=== PATIENT | female | born 1925 | race Caucasian/White ===

== ENCOUNTER 2016-07-20 15:58 | Inpatient (IN) | payer MEDICARE, BC ==
[2016-07-20 16:25] LABS: Hematocrit 32 % (35-47); Hemoglobin 10.4 g/dl (12.0-16.0); Mean Corpuscular HGB Conc 33 g/dl (31-36); Mean Corpuscular Hemoglobin 28 pg (27-31); Mean Corpuscular Volume 86 fL (80-97); Mean Platelet Volume 7 um3 (7.4-10.4); Red Blood Count 3.71 10^6/ul (4.0-5.4); Red Cell Distribution Width 17 % (10.5-15); White Blood Count 9.6 10^3/ul (3.5-10.8)
--- NOTE | 2016-07-20 16:27 | RAD ---
INDICATION: Neurologic code villeda COMPARISON: CT brain May 16, 2012 TECHNIQUE: Noncontrast axial source images were acquired from the skull base to the vertex. FINDINGS: Ventricles/sulci: The ventricles and cisterns are normal in size and configuration for age. Brain parenchyma: There is mild periventricular and subcortical white matter change compatible with chronic ischemia. Intracranial hemorrhage:None. Extra-axial spaces: There are no abnormal extra axial fluid collections or evidence of extra-axial mass. Calvarium: There is no calvarial fracture or other calvarial abnormality. Scalp: There is no evidence of scalp or extracalvarial soft tissue abnormality. Paranasal sinuses/mastoid: The paranasal sinuses and mastoid air cells are clear. Other: None. IMPRESSION: NO ACUTE INTRACRANIAL FINDINGS
--- NOTE | 2016-07-20 16:29 | RAD ---
INDICATION: Left-sided weakness COMPARISON: May 15, 2012 TECHNIQUE: An AP portable view obtained at 1620 hours is submitted. FINDINGS: Bones/Soft Tissues: There are no acute bony findings. Cardiomediastinal: The cardiomediastinal silhouette is normal. Lungs: There are no infiltrates. There is hyperinflation Pleura: There is mild chronic blunting at the costophrenic angles likely reflecting mild chronic pleural change in correlation with hyperinflation. Other: None IMPRESSION: NO ACTIVE DISEASE
[2016-07-20] MEDS ORDERED: Aspirin SUPP* 300 MG PR ONE (16:36)
[2016-07-20 16:41] LABS: Albumin 3.9 g/dL (3.2-5.2); BUN/Creatinine Ratio 19.2 (8-20); Calcium 9.1 mg/dL (8.6-10.3); EGFR African American 67.9 (>60); EGFR Non-African American 52.8 (>60); Globulin 2.6 g/dL (2-4); Potassium 4.3 mmol/L (3.5-5.0); Total Bilirubin 0.6 mg/dL (0.2-1.0); Total Protein 6.5 g/dL (6.4-8.9)
[2016-07-20 16:43] LABS: Troponin I 0.01 ng/mL (<0.04)
[2016-07-20] MEDS ORDERED: Iodixanol* (CONTRAST) 320 MG/ML 100 ML SDV IV ONE (17:11)
--- NOTE | 2016-07-20 17:47 | RAD ---
INDICATION: Left-sided CVA COMPARISON: CT brain July 20, 2016 TECHNIQUE: Axial source images were acquired with coronal and sagittal reconstructions. CT angiographic technique was utilized with injection of 80 mL Visipaque 320. FINDINGS: Aortic arch: There are moderate atherosclerotic calcifications of the arch. There are no significant CT angiographic adenitis of the great vessels arising from the arch other than mild intimal calcifications. Right carotid: The internal carotid artery, carotid bifurcation, extracranial portions of the internal carotid artery, carotid artery at the skull base, carotid siphon, and carotid termination appear patent. There are intimal calcifications at the level of the bifurcation and carotid siphon.. Left carotid:The internal carotid artery, carotid bifurcation, extracranial portions of the internal carotid artery, carotid artery at the skull base, carotid siphon, and carotid termination appear patent. There are intimal calcifications the level of the bifurcation and carotid siphon. Right middle and anterior cerebral arteries: There are no CT angiographic abnormalities of the middle or anterior cerebral arteries. Left middle and anterior cerebral arteries: There are no CT angiographic abnormalities of the middle or anterior cerebral arteries Right vertebral: The CT angiographic appearance of the vertebral artery is normal. Left vertebral: The CT angiographic appearance of the vertebral artery is normal. Basilar artery: The basilar artery and basilar tip appear normal. Posterior cerebral arteries: The distal distribution of the right and left posterior cerebral arteries is normal. [place]: The CT angiographic appearance of the [place] is normal. There is a variant with origin of the left posterior cerebral artery. Source images show no evidence of mass or adenopathy within the neck. There are no focal parenchymal abnormalities or abnormal areas of enhancement. IMPRESSION: NO EVIDENCE OF SIGNIFICANT STENOSIS, ANEURYSM, OR BRANCH OCCLUSION. MILD UNDERLYING INTIMAL CALCIFICATIONS COMPATIBLE WITH ATHEROSCLEROTIC CHANGE. CPT II Codes: 3100F PQRS
[2016-07-20 18:21] LABS: Urine Bacteria Absent (Absent); Urine Bilirubin Negative (Negative); Urine Glucose Negative (Negative); Urine Nitrite Positive (Negative)
[2016-07-20] MEDS ORDERED: Atorvastatin* 80 MG TAB PO ONE ×2 (18:50→21:30)
[2016-07-20] MEDS ORDERED: Ciprofloxacin 400MG IVPREMIX(* 400 MG/200 ML BAG IVPB ONE (18:52)
--- NOTE | 2016-07-20 19:45 | ED ---
Walter Scott Billy, scribed for Lennox Reed MD on 07/20/16 at 1613 . Neurological HPI - HPI Summary HPI Summary: Patient is an 89 year-old female BIBA to [facility] for evaluation for stroke. Her states at at 1500, approximately 1 hour LOGISTICS PROJECT MANAGER, he noticed right facial droop, LUE and LLE weakness, and slurred speech. The patient also complained of dizziness and difficulty getting up from the toilet, and when she did, she had near-syncopal sensation. Patient and family reports no other complaints. states that she does not use any bloodthinners. 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 Onset/Duration: Gradual Onset, Started minutes ago, Still Present Timing: Constant Onset Severity: Moderate Current Severity: Moderate Neurological Deficit Location: Facial, LUE, LLE Character: Dizzy, Motor Weakness, Impaired Speech, Other: - facial droop Aggravating: Position Change/Supine to Erect Alleviating: Nothing Associated Signs and Symptoms: Positive: Weakness, Dizziness, Impaired Speech - Allergy/Home Medications Allergies/Adverse Reactions: Allergies Allergy/AdvReac Type Severity Reaction Status Date / Time Aspirin Allergy NOSEBLEEDS Verified 07/20/16 16:30 Home Medications: Home Medications Amlodipine Besylate [Norvasc] 2.5 mg PO DAILY 07/20/16 [History Confirmed ] Cholecalciferol TAB* [Vitamin D TAB*] 400 unit PO DAILY 07/20/16 [History Confirmed 07/20/16] Hydroxychloroquine TAB* [Plaquenil TAB*] 200 mg PO BID 07/20/16 [History Confirmed 07/20/16] Losartan Potassium [Cozaar] 50 mg PO DAILY 07/20/16 [History Confirmed 07/20/16] PMH/Surg Hx/FS Hx/Imm Hx Endocrine/Hematology History: Denies: Hx Anticoagulant Therapy, Hx Anemia, Hx Unexplained Bleeding Cardiovascular History: Reports: Hx Hypertension Denies: Hx Aneurysm, Hx Angina, Hx Angioplasty, Hx Auto Implanted Cardiovert Defib, Hx Cardiac Arrest, Hx Cardiomegaly, Hx Coronary Artery Disease, Hx Deep Vein Thrombosis, Hx Pacemaker/ICD, Hx Peripheral Vascular Disease, Hx Rheumatic Fever, Hx Syncope, Hx Valvular Heart Disease Musculoskeletal History: Reports: Hx Arthritis Denies: Other Musculoskeletal History Sensory History: Reports: Hx Cataracts - both eyes, Hx Contacts or Glasses, Hx Hearing Aid - x2, Hx Hearing Problem Denies: Hx Eye Injury, Hx Eye Prosthesis, Hx Glaucoma, Hx Macular Degeneration, Hx Vision Problem, Hx Deafness, Other Sensory Impairments Opthamlomology History: Reports: Hx Cataracts - both eyes, Hx Contacts or Glasses Denies: Hx Eye Injury, Hx Eye Prosthesis, Hx Glaucoma, Hx Macular Degeneration, Hx Vision Problem, Other Sensory Impairments - Surgical History Surgery Procedure, Year, and Place: nose cauterization a couple of weeks ago Hx Anesthesia Reactions: No Infectious Disease History: Denies: Traveled Outside the [place] in Last 30 Days - Family History Known Family History: Positive: Other - stroke (brother) - Social History Alcohol Use: Rare Substance Use Type: Reports: None Smoking Status (MU): Never Smoked Tobacco Review of Systems Negative: Fever Neurological: Other - facial droop; dizziness; near-syncope with position change Positive: Weakness, Slurred Speech All Other Systems Reviewed And Are Negative: Yes Physical Exam - Summary Physical Exam Summary: VITAL SIGNS: Reviewed. GENERAL: Patient is a well developed and nurished female who is lying comfortable in the stretcher. Patient is not in any acute respiratory distress. HEAD AND FACE: No signs of trauma. No ecchymosis, hematomas or skull depressions. No sinus tenderness. EYES: PERRLA, EOMI x 2, No injected conjunctiva, no nystagmus. No photophobia. EARS: Hearing grossly intact. Ear canals and tympanic membranes are within normal limits. MOUTH: Oropharynx within normal limits. NECK: Supple, trachea is midline, no adenopathy, no JVD, no carotid bruit, no c- spine tenderness, neck with full ROM. No meningeal signs, no Kernig's or brudzinskis signs. CHEST: Symmetric, no tenderness at palpation LUNGS: Clear to auscultation bilaterally. No wheezing or crackles. CVS: Regular rate and rhythm, S1 and S2 present, no murmurs or gallops appreciated. ABDOMEN: Soft, non-tender. No signs of distention. No rebound no guarding, and no masses palpated. Bowel sounds are normal. EXTREMITIES: FROM in all major joints, no edema, no cyanosis or clubbing. NEURO: Alert and oriented x 3. Slight left side weakness and decreased sensation. NIH score is 3. SKIN: Dry and warm Triage Information Reviewed: Yes Vital Signs On Initial Exam: Initial Vital Signs Temp 97.9 F 07/20/16 16:00 Pulse 76 07/20/16 16:00 Resp 21 07/20/16 16:00 BP 199/68 07/20/16 16:00 Pulse Ox 99 07/20/16 16:00 Vital Signs Reviewed: Yes Diagnostics - Laboratory Result Diagrams: 07/20/16 16:14 07/20/16 16:14 Lab Statement: Any lab studies that have been ordered have been reviewed, and results considered in the medical decision making process. - Radiology CXR Xray Interpretation: No Acute Changes Radiology Interpretation Completed By: Radiologist - CT brain CT Interpretation: No Acute Changes CT Interpretation Completed By: Radiologist cta head CT Interpretation Completed By: Radiologist - NO EVIDENCE OF SIGNIFICANT STENOSIS, ANEURYSM, OR BRANCH OCCLUSION. MILD UNDERLYING INTIMAL CALCIFICATIONS COMPATIBLE WITH ATHEROSCLEROTIC CHANGE. - EKG 1613 EKG Interpretation: NSR 71 bpm, no ST elevation, ST depressions in II and V4. NIH Scale - NIH Scale Level of Consciousness: Alert/Keenly Responsive Ask Patient the Month and His/Her Age: Both Correct Ask Pt to Open/Close Eyes and Trucker Hand/Release Non-Paretic Hand: Both Correctly Best Gaze (Only Horizontal Eye Movement): Normal Visual Field Testing: No Visual Loss Facial Paresis-Pt to Smile & Close Eyes or Grimace Symmetry: Normal/Symmetrical Motor Function - Right Arm: No Drift-Holds 10 Seconds Motor Function - Left Arm: Drifts LT 10 seconds Motor Function - Right Leg: No Drift-Holds 10 Seconds Motor Function - Left Leg: Drifts LT 10 seconds Limb Ataxia-Must be out of Proportion to Weakness Present: Absent Sensory (Use Pinprick to Test Arms/Legs/Trunk/Face): Pinprick Less on Affected Best Language (Describe Picture, Name Items): No Aphasia Dysarthria (Read Several Words): Normal Extinction and Inattention: No Abnormality Total Score: 3 Course/Dx - Course Assessment/Plan: Patient is an 89 year-old female BIBA to [facility] for evaluation for stroke. Her states at at 1500, approximately 1 hour LOGISTICS PROJECT MANAGER, he noticed right facial droop, LUE and LLE weakness, and slurred speech. The patient also complained of dizziness and difficulty getting up from the toilet, and when she did, she had near-syncopal sensation. Patient and family reports no other complaints. states that she does not use any bloodthinners. Bloodwork shows normochromic, normocytic anemia. UA is positive for UTI. CT brain, as read by radiologist, shows no acute intracranial pathology. In the ER course, it seems as if the patient has improved her slurred speech and facial droop, but still has slight left-sided weakness. I discussed with Dr. Gonzalez (neurology ) who recommended CTA head and admission to hospital. She reports that she is not candidate for tPA as the symptoms have been improving. I discussed the case with Dr. Chand for admission, and she requested to wait for CTA head results before admission. The CTA results shows no evidence of significant stenosis, aneurysm, or branch occlusions, and mild underlying intimal calcifications compatible with atherosclerotic changes. At this time, I touched base with Dr. Chand again, who admitted the patient for further workup and management. She was given ciprofloxacin for UTI and is hemodynamically stable, A&Ox3. - Differential Dx Differential Diagnoses Neuro: Positive: Cerebrovascular Accident, Hypertension, Migraine, Seizure Disorder, Transient Ischemic Attack - Diagnoses Provider Diagnoses: TIA vs CVA, UTI (urinary tract infection), Uncontrolled hypertension During the Visit The Following Alert/Code Occurred: Code Gordon - Physician Notifications Discussed Care of Patient With: Dr. Oliveira (radiology) @ 1625: CT brain findings reviewed. Dr. Gonzalez (neurology) @ 1630: will consult patient, recommends 1x dose ASA, CTA head, and recommends admission. Dr. Chand ( hospitalist) @ 1710: refused to accept patient for admission at this time. Dr. Chand (hospitalist) @ 1815: accepts admission. Discharge - Discharge Plan Condition: Stable Disposition: ADMITTED TO [facility] The documentation as recorded by the Walter alatorre Billy accurately reflects the service I personally performed and the decisions made by me, Lennox Reed MD.
[2016-07-20] MEDS: Heparin VIAL(*) 5000 UNITS/ML VIAL (FIVE THOUSAND) SUBCUT SCH (21:31)
[2016-07-20] MEDS: Hydroxychloroquine TAB* 200 MG PO SCH (21:31)
--- NOTE | 2016-07-21 00:04 | HP ---
ATTENDING PHYSICIAN ADDENDUM NOW INCLUDED ON THIS REPORT HOSPITAL MEDICINE HISTORY AND PHYSICAL: DATE OF ADMISSION: 07/20/16 PRIMARY CARE PHYSICIAN: Dr. Avalos. ATTENDING PHYSICIAN: Cora Chand MD* (dictation provided by Omaira Espinosa NP) . CHIEF COMPLAINT: Slurred speech and left-sided weakness. HISTORY OF PRESENT ILLNESS: Ms. Ornelas is an 89-year-old female with a past medical history of hypertension and rheumatoid arthritis who presents today to the hospital with concern for slurred speech and left-sided weakness. Ms. Ornelas states that she was in her normal state of health when this afternoon at approximately 2 p.m., she started to feel strange. She felt that her mind went blank. She felt that her words were slurred. She also had left upper extremity weakness. She called out to her who came to check on her. He then called their daughters and ultimately, the decision was made to bring her into the hospital via EMS. The patient states that prior to this, she has been feeling her normal state of health with no complaints. In the emergency room, Ms. Ornelas had some slurred speech and left-sided weakness but it resolved quickly. She is now speaking clearly though maybe has a faint amount of left-sided weakness in her hand. She had a CT of the brain, which showed no acute abnormalities. She had a head CTA, which showed no significant stenosis. Her labs were unremarkable except for the presence of nitrites on her UA. She is asymptomatic in terms of dysuria or frequency. Based on Ms. Ornelas's presentation with slurred speech and left-sided weakness now resolved and suspicion for TIA, Hospital Medicine was called regarding admission. PAST MEDICAL HISTORY: 1. Hypertension. 2. Rheumatoid arthritis. 3. History of D and C. 4. History of tonsillectomy. 5. History of breast cyst removal. MEDICATIONS: 1. Alendronate 70 mg p.o. weekly. 2. Amlodipine 2.5 mg p.o. daily. 3. Losartan 50 mg p.o. daily. 4. Methotrexate 2.5 mg 15 tablets p.o. weekly. 5. Multivitamin 1 cap p.o. daily. 6. Atenolol 50 mg p.o. daily. 7. Cholecalciferol 400 units p.o. daily. 8. Folic acid 1 mg p.o. daily. 9. Hydroxychloroquine 200 mg p.o. b.i.d. ALLERGIES: ASPIRIN, which the family reports is history of nosebleeds, though during that time she was not on aspirin. FAMILY HISTORY: Reviewed and noncontributory. SOCIAL HISTORY: No report of alcohol, tobacco, or drug use. She lives with her who is the healthcare proxy. REVIEW OF SYSTEMS: A 14-point review of systems was completed with Ms. Ornelas and all those not mentioned above were negative. PHYSICAL EXAMINATION GENERAL: Ms. Ornelas is lying in the bed. She is in no acute distress. She is surrounded by her family. VITAL SIGNS: Temperature 97.9, pulse rate 68, respiratory rate 19, O2 saturation 98% on room air, blood pressure 173/60. LUNGS: Clear to auscultation bilaterally with no accessory muscle use and good aeration. HEART: S1, S2. No murmur, rub, or gallop and regular. ABDOMEN: Soft, nontender with bowel sounds positive x4. EXTREMITIES: No cyanosis or edema. NEUROLOGIC: She is alert and oriented x3. She moves all extremities equally. There is perhaps a faint amount of decreased strength on the left upper extremity, but is very mild. Her face is symmetrical. She is speaking clearly. SKIN: Intact. LABORATORY DATA AND DIAGNOSTIC STUDIES: WBC 9.6, hemoglobin 10.4, hematocrit 32, platelet count 254. INR 1.01. Sodium 138, potassium 4.3, chloride 107, serum bicarbonate 23, BUN 19, creatinine 0.99, glucose 92, lactic acid 1.3. Troponin 0.01. Triglycerides 161, cholesterol 199, LDL 125, HDL 42. Urine shows positive nitrites and blood but no bacteria or leukocyte esterase. Chest x-ray shows no acute process. Head CT is read as follows: "No acute intracranial findings." Head and neck CTA is read as follows: "No evidence of significant stenosis, aneurysm, or branch occlusion. Mild underlying intimal calcifications compatible with atherosclerotic change." ASSESSMENT: Ms. Ornelas is an 89-year-old female with a past medical history of hypertension and rheumatoid arthritis who presents today to the hospital with slurred speech and left-sided weakness now resolved with concern for transient ischemic attack. Our plans are as follows; for a full inpatient admission as I expect her length of stay to be greater than 2 days. 1. Transient ischemic attack: Again, the patient has a slight suggestion of a continued left-sided weakness, but it is very very mild. She had a head CT and head and neck CTA which are negative. Plan for MRI brain. The patient has had lipid profile check and her LDL is 125; we will start high-dose statin in the short term. The patient has had aspirin already per rectum and I will continue that daily. I do note that the patient's family is concerned that the patient has had epistaxis that was quite severe in the past. This was not associated with aspirin use, but they are concerned that she is at high risk for bleeding. I think in the short term, she definitely warrants aspirin but we will have to consider the risks and benefits of that going forward. The patient does have high blood pressure and is on multiple agents. At this point, we will allow for permissive hypertension but in the long run, we will need to make sure her blood pressure is well controlled to prevent future stroke. She has no history of diabetes. We will monitor her on telemetry for any evidence of atrial fibrillation and she will have a transthoracic echocardiogram. 2. Hypertension: Plan to allow for some permissive hypertension in the immediate ayleen-stroke period. The patient will continue on her atenolol but I will be holding her losartan and amlodipine. 3. Rheumatoid arthritis: Continue home medications. 4. DVT prophylaxis with heparin subcu. 5. Disposition to telemetry floor. 6. Code status is full code. This was reviewed at length with the patient and family at the bedside. TIME SPENT: Approximately 60 minutes were spent on admission of this patient, more than half the time was spent with the patient at the bedside reviewing the events leading up to this hospitalization, performing the physical examination, and reviewing my plan of care. OMAIRA ESPINOSA NP ADDENDUM: DATE OF ADMISSION: 07/20/16 HISTORY OF PRESENT ILLNESS: Ms. Ornelas is an 89-year-old female with history of rheumatoid arthritis who presents after development of sudden onset of slurred speech and left-sided weakness. By the time she presented to the emergency department, her symptoms began to resolve. She was not a good PPI candidate due to rapid improvement of her symptoms. She is going to be admitted with a diagnosis of CVA versus TIA for further management. Neurology is going to be consulted. For further details of the patient's presentation and plan, please see history and physical dictated by Omaira Espinosa NP on 07/20/16 , with which I agree. CORA CHAND MD CC: Dr. Avalos* [id number]/CPS #: [id number] #: [id number] MTDD
--- NOTE | 2016-07-21 00:12 | HP ---
HISTORY AND PHYSICAL: ADDENDUM: DATE OF ADMISSION: 07/20/16 HISTORY OF PRESENT ILLNESS: Ms. Ornelas is an 89-year-old female with history of rheumatoid arthritis who presents after development of sudden onset of slurred speech and left-sided weakness. By the time she presented to the emergency department, her symptoms began to resolve. She was not a good PPI candidate due to rapid improvement of her symptoms. She is going to be admitted with a diagnosis of CVA versus TIA for further management. Neurology is going to be consulted. For further details of the patient's presentation and plan, please see history and physical dictated by Omaira Espinosa NP on 07/20/16 , with which I agree. [id number] #: [id number] MTDD
[2016-07-21] MEDS: Heparin VIAL(*) 5000 UNITS/ML VIAL (FIVE THOUSAND) SUBCUT SCH ×3 (05:20→21:05)
[2016-07-21 05:37] LABS: Hematocrit 31 % (35-47); Hemoglobin 10.2 g/dl (12.0-16.0); Mean Corpuscular HGB Conc 33 g/dl (31-36); Mean Corpuscular Hemoglobin 28 pg (27-31); Mean Corpuscular Volume 86 fL (80-97); Mean Platelet Volume 7 um3 (7.4-10.4); Red Blood Count 3.64 10^6/ul (4.0-5.4); Red Cell Distribution Width 17 % (10.5-15); White Blood Count 6.9 10^3/ul (3.5-10.8)
[2016-07-21] MEDS: Atenolol TAB* 50 MG PO SCH (09:20)
[2016-07-21] MEDS: Cholecalciferol TAB* 400 UNIT PO SCH (09:20)
[2016-07-21] MEDS: Folic Acid TAB* 1 MG PO SCH (09:20)
[2016-07-21] MEDS: Hydroxychloroquine TAB* 200 MG PO SCH ×2 (09:20→21:04)
[2016-07-21] MEDS: Aspirin EC TAB* 325 MG PO SCH (09:21)
--- NOTE | 2016-07-21 15:38 | PN ---
Subjective Date of Service: 07/21/16 Interval History: Pt feels back to normal. Left sided weakness resolved. Objective Active Medications: Aspirin (Ecotrin Ec Tab*) 325 mg PO DAILY [facility] Last Admin: 07/21/16 09:21 Dose: Not Given Atenolol (Tenormin Tab*) 50 mg PO DAILY [facility] Last Admin: 07/21/16 09:20 Dose: 50 mg Atorvastatin Calcium (Lipitor*) 20 mg PO 1700 [facility] Cholecalciferol (Vitamin D Tab*) 400 unit PO DAILY [facility] Last Admin: 07/21/16 09:20 Dose: 400 unit Folic Acid (Folvite Tab*) 1 mg PO DAILY [facility] Last Admin: 07/21/16 09:20 Dose: 1 mg Heparin Sodium (Porcine) (Heparin Vial(*)) 5,000 units SUBCUT Q8HR [facility] Last Admin: 07/21/16 13:52 Dose: 5,000 units Hydroxychloroquine Sulfate (Plaquenil Tab*) 200 mg PO BID [facility] Last Admin: 07/21/16 09:20 Dose: 200 mg Vital Signs 07/20/16 07/20/16 07/20/16 19:00 19:50 20:00 Temperature Pulse Rate 62 60 63 Respiratory 18 18 16 Rate Blood Pressure 165/70 182/66 (mmHg) O2 Sat by Pulse 94 95 98 Oximetry 07/20/16 07/20/16 07/20/16 20:54 21:01 23:25 Temperature 98.2 F 98.3 F Pulse Rate 67 56 Respiratory 18 16 16 Rate Blood Pressure 157/70 147/47 (mmHg) O2 Sat by Pulse 98 97 Oximetry 07/21/16 07/21/16 07/21/16 03:42 07:17 08:00 Temperature 98.6 F 98.4 F Pulse Rate 58 64 Respiratory 16 16 16 Rate Blood Pressure 152/47 151/49 (mmHg) O2 Sat by Pulse 97 98 98 Oximetry 07/21/16 11:07 Temperature 97.9 F Pulse Rate 63 Respiratory 16 Rate Blood Pressure 169/65 (mmHg) O2 Sat by Pulse 98 Oximetry Oxygen Devices in Use Now: None Appearance: 89 yo f in nAD, aAOx3 Eyes: No Scleral Icterus, PERRLA Ears/Nose/Mouth/Throat: NL Teeth, Lips, Gums, Mucous Membranes Moist Neck: NL Appearance and Movements; NL JVP, Trachea Midline Respiratory: Symmetrical Chest Expansion and Respiratory Effort, Clear to Auscultation Cardiovascular: NL Sounds; No Murmurs; No JVD, RRR Abdominal: NL Sounds; No Tenderness; No Distention, No Hepatosplenomegaly Lymphatic: No Cervical Adenopathy Extremities: No Edema, No Clubbing, Cyanosis Skin: No Rash or Ulcers, No Nodules or Sclerosis Neurological: Alert and Oriented x 3, NL Muscle Strength and Tone Result Diagrams: 07/21/16 04:59 07/20/16 16:14 Assess/Plan/Problems-Billing Assessment: 89 yo F with h/o HTN and RA presents with left sided weakness and slurred speech that resolved the day of admission - Patient Problems (1) CVA (cerebrovascular accident due to intracerebral hemorrhage) Comment: vs TIA cont ASA Appreciate Dr. Gonzalez's consult Lipitor started CTA unremarkable, MRI pending Echo pending. Telem shows no arrythmias (2) Dyslipidemia Comment: LDL 125, lipitor started (3) Rheumatoid arthritis Comment: cont Plaquenil (4) Normocytic anemia Comment: chronic , at baseline (5) HTN (hypertension) Comment: SBP in 160's for permissive HTN, cont Atenolol, will restart Norvasc (6) DVT prophylaxis Comment: heparin sc
[2016-07-21] MEDS: Atorvastatin* 20 MG TAB PO SCH (17:20)
--- NOTE | 2016-07-21 20:03 | CONS ---
NEUROLOGY CONSULTATION: DATE OF CONSULT: 07/21/16 LOCATION: The patient is an inpatient on [facility] [address]. CONSULT REQUESTED BY: Omaira Espinosa NP. PRIMARY CARE PHYSICIAN: Dr. Avalos. REASON FOR CONSULT: Possible TIA. HISTORY OF PRESENT ILLNESS: Modesta Ornelas is an 89-year-old woman with a history of hypertension and rheumatoid arthritis who was not taking an aspirin upon presentation due to history of nosebleeds and presented with the onset of symptoms around 3 p.m. of lightheadedness as well as difficulty walking and left arm weakness. In addition, her reports that the left side of her face appeared droopy for a time. She denies any obvious sensory changes with this, but later in the day was noting some cramping in her left leg, in particular her thigh. At the onset of her symptoms, she says her left arm would just "flop over". In addition, she apparently reported some difficulty with speech at that time with dysarthria primarily. I spoke with Dr. Reed in the emergency department yesterday who reported that her NIH stroke scale at that time was 3 for sensory, arm and leg but she was improving at the time of his evaluation a little after 4 p.m so she was not given tPA. Today, the patient reports she feels essentially back to her baseline, though may be a little more tired than normal. She has been ambulating without difficulty. At home around the house, she typically ambulates without assistance but when she is out in the public, she typically uses a cane. In the ED yesterday, she underwent CT of the brain, which did not show any acute abnormalities and had a CTA of the head and neck. She was given 325 mg of aspirin in the emergency department and has been continued on that during her admission here today. PAST MEDICAL HISTORY: 1. Hypertension. 2. Rheumatoid arthritis. 3. History of tonsillectomy. 4. D and C. 5. Breast cyst removal. HOME MEDICATIONS: 1. Alendronate 70 mg weekly. 2. Amlodipine 2.5 mg daily. 3. Losartan 50 mg daily. 4. Methotrexate 2.5 mg 15 tablets weekly. 5. Multivitamin daily. 6. Atenolol 50 mg daily. 7. Cholecalciferol 400 units daily. 8. Folic acid 1 mg daily. 9. Plaquenil 200 mg b.i.d. ALLERGIES: She reports that ASPIRIN causes increase in nosebleeds, though she continues to have nosebleeds and has not been taking ASPIRIN recently. FAMILY HISTORY: Notable for hypertension in multiple family members. No known history of strokes. She reports her mother of old age and believes her father passed from a heart condition. SOCIAL HISTORY: She lives with her . No alcohol, tobacco or drug use. REVIEW OF SYSTEMS: As noted in the HPI, otherwise negative. PHYSICAL EXAMINATION: Vital Signs: She is currently afebrile with a temperature of 97.9, blood pressure 169/65, heart rate is 63 and oxygen saturation 98% on room air. On her initial evaluation in the emergency department, her blood pressure was elevated at 199/68 at 1600 with the subsequent measured at 1617 of 216/59. On general examination, she is an elderly, thin woman in no acute distress. Heart reveals a regular rate and rhythm with no murmurs, rubs or gallops. Lungs are clear to auscultation bilaterally. There are no carotid bruits. On neurologic examination, her speech is fluent without aphasia or dysarthria. On cranial nerve testing, pupils are equal, round and reactive from 2 to 1.5 mm bilaterally. Funduscopic exam was benign. Versions are full without nystagmus , but she has some impersistence in gaze horizontally bilaterally. Visual benoit are full to confrontation without any extinction to double simultaneous stimulation. Facial sensation intact in the V1 to V3 distributions bilaterally to light touch. Her face is mildly asymmetric with slight flattening of the right nasolabial fold, but family reports that she looks to be at her baseline. There is equal activation on smile and cheek puff is equal. The palate elevates symmetrically and the tongue protrudes in the midline. On motor examination, there is normal bulk and tone in the upper and lower extremities. She has limited ability to abduct the right shoulder due to intrinsic shoulder pathology, but there is no obvious weakness in the upper or lower extremities. There is no pronator drift. There was some questionable weakness of ankle dorsiflexion on the left, but this may have been due to patient understanding of the maneuver being requested. On sensory examination, she seemed to endorse some difference in temperature between the right and left lower extremities, but the upper extremities were equal. Light touch was equal in the upper and lower extremities. On [id number] testing, there is no ataxia. Reflexes were 2+ in the biceps, triceps, brachioradialis and knees and absent ankle jerks. Toes are down. Her gait is narrow based and stable. DIAGNOSTIC STUDIES/LAB DATA: CMP was unremarkable. Cholesterol profile yesterday notable for total cholesterol of 199, LDL 125, HDL 42, and triglycerides of 161. CBC notable for a low hematocrit of 31 and hemoglobin of 10.2 with normal white count and platelet count. Coagulation studies were normal. Urinalysis was notable for 1+ blood, positive nitrites and presence of squamous epithelial cells, but no bacteria and no leukocyte esterase. CT of the brain was personally reviewed and showed some age-appropriate atrophy , but otherwise no obvious acute changes. CT angiogram of the head and neck was personally reviewed and showed some calcifications at the carotid bifurcations bilaterally and calcification in the carotid siphon, in particular on the right side where there appears to be a slight filling defect in the carotid siphon due to calcification on the source images but in the coronal sections, this filling defect is not as apparent. There is no obvious occlusion distally in the LEAH or MCA on the right. Telemetry was reviewed and there has been no evidence of atrial fibrillation. IMPRESSION: Modesta Ornelas is an 89-year-old woman with a history of hypertension who presented with transient left-sided weakness as well as gait difficulties and possibly some facial weakness, which have all resolved at this point save for some possible sensory changes in the left leg and possible mild weakness of the left foot. This is concerning for transient ischemic attack versus small stroke and she has been admitted for stroke workup. Her blood pressures are at goal at this point and some of her blood pressure medications aside from the beta-pearl have been held at this time. She has been started on aspirin and she will be continued on this at this time with monitoring for epistaxis. She has atherosclerosis evident intracranially as well as extracranially and her LDL is 125, so she will be started on 20 mg of atorvastatin. She should be continued on telemetry for monitoring for atrial fibrillation and will undergo MRI of the brain without contrast tomorrow to look for evidence for stroke. She should have evaluation by Physical Therapy but appears to be at her baseline in terms of her gross motor strength at this time. Thank you for this consultation. CC: Dr. Avalos* [id number]/[facility] #: [id number]
[2016-07-22] MEDS: Heparin VIAL(*) 5000 UNITS/ML VIAL (FIVE THOUSAND) SUBCUT SCH ×2 (06:18→13:38)
[2016-07-22] MEDS ORDERED: amLODIPine TAB* 5 MG PO SCH (09:00)
[2016-07-22] MEDS: Folic Acid TAB* 1 MG PO SCH (09:05)
[2016-07-22] MEDS: Cholecalciferol TAB* 400 UNIT PO SCH (09:05)
[2016-07-22] MEDS: Aspirin EC TAB* 325 MG PO SCH (09:05)
[2016-07-22] MEDS: Atenolol TAB* 50 MG PO SCH (09:06)
[2016-07-22] MEDS: Hydroxychloroquine TAB* 200 MG PO SCH (09:11)
[2016-07-22 09:28] VITALS: BP 167/52
--- NOTE | 2016-07-22 11:50 | RAD ---
Indication: Transient ischemic attack. Sagittal and axial T1, axial T2, FLAIR, diffusion and susceptibility weighted images of the brain were obtained. Ventricular structures are midline. No midline shift is noted. The extra-axial spaces are unremarkable. There is central and cortical atrophy noted. Periventricular signal abnormality on the FLAIR images likely represents chronic ischemic change. No restriction of diffusion is noted. No mass effect is noted. Cerebellopontine angles are unremarkable. No evidence of brainstem lesions are noted. The visualized paranasal sinuses are otherwise unremarkable. The study is somewhat Limited as there is motion artifact. 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 NO RESTRICTION OF DIFFUSION IS NOTED.
--- NOTE | 2016-07-22 14:06 | ECHO ---
Patient: ROSA ALBERTO [facility] Rec#: [id number] : 1925 Date: 07/22/2016 Age: 89y Height: 160.02 cm / 63.0 in Weight: 52.16 kg / 115.0 lbs Sex: F BSA: 1.53 Room#: 435 Admit Date#: 07/20/2015 Type: Inpatient Referring: Cora Chand MD Reading: Tico Resendez DO [employer] Assistant: Glen Lundy RDCS CC: Gissel Avalos MD Transthoracic Echocardiogram Indication: TIA BP: 183/57 HR: 65 Rhythm: NSR Findings History: HTN, RA Technical Comments: The study quality is fair. The study is technically limited due to patient body habitus. Left Ventricle: The left ventricular chamber size is normal. Mild concentric left ventricular hypertrophy is observed. Global left ventricular wall motion and contractility are within normal limits. There is normal left ventricular systolic function. The estimated ejection fraction is 60-65%. Abnormal left ventricular diastolic filling is observed, consistent with impaired relaxation. Left Atrium: The left atrium is mildly dilated. Right Ventricle: The right ventricular chamber size and systolic function are within normal limits. Right Atrium: The right atrial cavity size is normal. Interatrial septum appears intact without evidence of shunting. The bubble study is negative. Aortic Valve: The aortic valve is trileaflet. Mild aortic leaflet calcification is visualized. There is mild to moderate aortic regurgitation. There is no evidence of aortic stenosis. Mitral Valve: Moderate mitral annular calcification present.that is posterior There is trace to mild mitral regurgitation. There is no evidence of mitral stenosis. Tricuspid Valve: There is trace tricuspid regurgitation. No pulmonary hypertension is noted. There is no tricuspid stenosis. Pulmonic Valve: The pulmonic valve appears normal. There is no evidence of pulmonic regurgitation. There is no pulmonic stenosis. Pericardium: There is no significant pericardial effusion. Aorta: There is no dilatation of the ascending aorta. The aortic arch is not well visualized. There is no dilation of the aortic root. Pulmonary Artery: The main pulmonary artery is not well visualized. Venous: The inferior vena cava appears normal in size. There is a greater than 50% respiratory change in the inferior vena cava dimension. Contrast: Normal saline was used as contrast for the bubble study. IMAGE 72 Conclusions The left ventricular chamber size is normal. Mild concentric left ventricular hypertrophy is observed. There is normal left ventricular systolic function with an estimated LVEF of 60-65%. The left atrium is mildly dilated. The right ventricular chamber size and systolic function are within normal limits. There is mild to moderate aortic regurgitation. Moderate posterior mitral annular calcification is present The agitated saline "bubble study" is negative. No prior studies available for comparison at time of interpretation. Measurements Name Value Normal Range RVIDd (AP) 2D 2 cm (0.9 - 2.6) RVDdMajor (2D) 2.6 cm (2.2 - 4.4) RAd ISD 4CH 4.4 cm (3.4 - 4.9) RA (A4C)W 3.5 cm (2.9 - 4.6) IVSd (2D) 1.3 cm (0.6 - 1) LVPWd (2D) 1.1 cm (0.6 - 1) LVIDd (2D) 4.7 cm (3.6 - 5.4) LVIDs (2D) 3.6 cm - Aortic Annulus 2 cm (1.4 - 2.6) Ao root diameter (2D) 2.9 cm (2.1 - 3.5) Ascending Ao 2.9 cm (2.1 - 3.4) LA dimension (AP) 2D 4 cm (2.3 - 3.8) LAd ISD 4CH 4.4 cm (2.9 - 5.3) LA ISD 4CH W 3.1 cm (2.5 - 4.5) Name Value Normal Range LA ESV SP 4CH (A/L) 56 ml - LA ESV SP 2CH (A/L) 57 ml - LA ESV BP (A/L) 61 ml - LA ESV BP (A/L) index 39.37 ml/m2 - LA ESV SP 4CH (MOD) 53 ml - LA ESV SP 2CH (MOD) 54 ml - Name Value Normal Range MV E-wave Vmax 0.75 m/sec - MV deceleration time 201 msec - MV A-wave Vmax 0.88 m/sec - MV E:A ratio 0.85 ratio - LV lateral e' Vmax 0.8 m/sec - LV E:e' septal ratio 0.93 ratio - Name Value Normal Range LVOT Vmax 1 m/sec - AR PHT 416.23 msec - Name Value Normal Range MV Vmax 1.03 m/sec - MV VTI 26.99 cm - MV peak gradient 4.25 mmHg - MV mean gradient 1.62 mmHg - MVA (continuity VTI) 2.59 cm2 - Name Value Normal Range TR Vmax 2.3 m/sec - TR peak gradient 22 mmHg - RAP 3 mmHg - RVSP 23 mmHg - IVC diameter 0.73 cm - Name Value Normal Range PV Vmax 1.01 m/sec - PV peak gradient 4.1 mmHg -
[2016-07-22] MEDS: Atorvastatin* 20 MG TAB PO SCH (16:16)
--- NOTE | 2016-07-23 00:12 | DS ---
DISCHARGE SUMMARY: DATE OF ADMISSION: 07/20/16 DATE OF DISCHARGE: 07/22/16 PRIMARY CARE PHYSICIAN: Dr. Avalos. DISCHARGE DIAGNOSIS: Transient ischemic attack manifested with slurred speech and left-sided weakness and resolved within 24 hours of the patient's admission. SECONDARY DIAGNOSES: 1. Hypertension. 2. Rheumatoid arthritis. 3. Tonsillectomy. 4. Breast cyst removal. 5. Dyslipidemia. MEDICATIONS AT DISCHARGE: Include: 1. Aspirin 81 mg daily. 2. Fosamax 70 mg weekly. 3. Norvasc 2.5 mg daily. 4. Atenolol 50 mg daily. 5. Lipitor 20 mg daily. 6. Vitamin D 400 units daily. 7. Folvite 1 tablet daily. 8. Plaquenil 200 mg b.i.d. 9. Cozaar 50 mg daily. 10. Methotrexate 15 mg p.o. weekly. 11. Multivitamin 1 tablet daily. LABORATORY DATA AND STUDIES PERFORMED DURING THE HOSPITAL STAY: On 07/21/15, white blood cell count of 6.9, hemoglobin of 10.2, hematocrit of 31, and platelets of 243. Sodium was 138, potassium 4.3, chloride 107, carbon dioxide 23, BUN 19, creatinine 0.99. Liver function tests were unremarkable. Troponin was 0.01 on presentation. Lipid profile showed triglycerides of 161, cholesterol total of 199, LDL of 125 , HDL of 42. Brain MRI obtained on 07/22/16, impression: "Atrophy with chronic ischemic white matter change. No restriction or diffusion is noted." Head and neck CTA obtained on 07/20/16, impression: "No evidence of significant stenosis, aneurysm, or branch occlusion. Mild underlying intimal calcifications compatible with atherosclerotic change." Portable chest x-ray at admission, impression: "No acute disease." Brain CT, impression: "No acute intracranial findings." Transthoracic echocardiogram with bubble study obtained on 07/22/16 showed left ventricular chamber size normal. Mild concentric LVH observed. There is normal left ventricular systolic function and estimated EF of 60% to 65%. There was mild- to-moderate aortic regurgitation. Moderate posterior mitral annular calcification is present. The bubble study is negative. CONSULTATIONS DURING THE HOSPITAL STAY: Included Dr. Gonzalez from Neurology. HOSPITALIZATION COURSE: Modesta Ornelas is an 89-year-old female who presented with sudden occurrence of slurred speech and left-sided weakness. Due to rapid improvement of the patient's symptoms, she was not offered TPA. The patient's symptoms resolved within hours of patient's presentation and admission to the hospital. She was evaluated by Dr. Gonzalez from Neurology. The patient stated that she is "allergic to ASPIRIN" due to history of frequent nosebleeds. After discussion with neurologist, it was noted that it is side effects of aspirin but is not a contraindication to patient using it. The patient was started on aspirin and in fact she did not have an episode of epistaxis during the couple of hospital days with us. The LDL was elevated and she was started also on Lipitor. An extensive discussion with the patient and patient's family about the use of aspirin. I stated that all the antiplatelet agents can cause nosebleeds. We had a long discussion about using moisturize and using saline drops for the nose. The patient also apparently had seen the ENT doctors in the past for cauterization. The patient is aware of the risks and benefits of taking aspirin and she agrees to take it for the time being. At discharge, the patient has no neuro deficits and she is going to be discharged home to follow up with her primary care physician, Dr. Gissel Avalos, on 07/25/16 at 2 p.m. PHYSICAL EXAMINATION: At the time of discharge, blood pressure of 167/52, heart rate of 62 and regular, respiratory rate 16, oxygen saturation 98% on room air, temperature 98.7. General: The patient is a very pleasant 89-year- old female, who is in no acute distress. Alert, awake, and oriented x3. HEENT : Head atraumatic, normocephalic. Eyes: Pupils equal and reactive to light and accommodation. Oropharynx clear. Mucosa moist. Neck: Supple. No JVD. No bruits bilaterally. Cardiovascular: Regular rate and rhythm. No murmur. Respiratory: Clear to auscultation bilaterally. Abdomen: Soft, nontender, bowel sounds present in all 4 quadrants. Extremities: There is no edema. Pulses +2 bilaterally. There is no clubbing or cyanosis. Neuro Evaluation: Speech clear. Cranial nerves II through XII grossly intact. Motor strength is 5/5 bilaterally. Please note that this is a short summary of the patient's hospital stay. Please refer to further medical records for details. TIME SPENT: Approximately 35 minutes were spent on the patient's discharge. CC: Dr. Avalos; Dr. Gonzalez* [id number]/[facility] #: [id number] [facility]
== END 2016-07-22 16:50 | disposition home or self-care (01) | DRG 69 ==
LOC: ED 15:58 → MEDTELE 18:37
PROVIDERS: ADMIT Internal Medicine; ATTEND Internal Medicine
DX: G45.9 Transient cerebral ischemic attack, unspecified (principal); M06.9 Rheumatoid arthritis, unspecified; I10 Essential (primary) hypertension; E78.5 Hyperlipidemia, unspecified; Z79.899 Other long term (current) drug therapy; Z88.6 Allergy status to analgesic agent; Z82.49 Family history of ischemic heart disease and other diseases of the circulatory system
CPT/HCPCS: 36415; 70450; 70496; 70498; 70551; 71010; 80053; 80061; 81003; 81015; 83605; 84484; 85025; 85610; 85730; 86850; 86900; 86901; 87077; 87086; 87186; 93005; 93306; A9270-GY; J0744; J1644; Q9967